=== PATIENT | male | born 1985 | race Caucasian/White ===

== ENCOUNTER 2017-07-08 20:35 | Emergency (ER) | payer OTHER ==
[2017-07-08] MEDS ORDERED: Cyclobenzaprine 10 MG Tab PO ONE (21:00)
[2017-07-08] MEDS ORDERED: Ketorolac 60 MG/2 ML SDV IM ONE (21:01)
--- NOTE | 2017-07-08 21:06 | EDM.PDOC ---
ED HPI GENERAL MEDICAL PROBLEM - General Chief Complaint: Back Pain or Injury Stated Complaint: HURT BACK/WORK Time Seen by Provider: 07/08/17 21:03 Source of Information: Reports: Patient History Limitations: Reports: No Limitations - History of Present Illness INITIAL COMMENTS - FREE TEXT/NARRATIVE: pt was loading a stemi pt out this am and he slipped on the ice and his rt leg stretched out and he was hyperextended. He noted tightness in the back but at this raghav he has pain in the rt leg which is coming down from the back. Onset: Today, Other ( The incident with his leg happened earlier today. ) Duration: Hour(s): Location: Reports: Back, Lower Extremity, Right Associated Symptoms: Reports: No Other Symptoms Lower Back Pain Score (Numeric/FACES): 7 - Related Data Allergies Allergy/AdvReac Type Severity Reaction Status Date / Time cefaclor [From Ceclor] Allergy Hives Verified 04/28/14 08:14 Penicillins Allergy Hives Verified 04/28/14 08:14 Home Meds: Home Meds NK [No Known Home Meds] 04/28/14 [History] Past Medical History - Past Surgical History Musculoskeletal Surgical History: Reports: Other (See Below) Other Musculoskeletal Surgeries/Procedures:: achilles tendon repair Social & Family History - Tobacco Use Smoking Status *Q: Never Smoker Second Hand Smoke Exposure: No - Caffeine Use Caffeine Use: Reports: Coffee, Soda - Alcohol Use Days Per Week of Alcohol Use: 0 - Recreational Drug Use Recreational Drug Use: No ED ROS GENERAL - Review of Systems Review Of Systems: See Below Constitutional: Reports: No Symptoms HEENT: Reports: No Symptoms Respiratory: Reports: No Symptoms Cardiovascular: Reports: No Symptoms Endocrine: Reports: No Symptoms GI/Abdominal: Reports: No Symptoms : Reports: No Symptoms Musculoskeletal: Reports: Other (pt has pain in the low back and this is radiating down the rt leg. ) ED EXAM,LOWER BACK PAIN/INJURY - Physical Exam Exam: See Below Text/Narrative:: pt arrived with pain over the lower lumbar spine and pain radiating down the back of the rt leg. Exam Limited By: No Limitations General Appearance: Alert, Anxious, Moderate Distress Ears: Normal TMs Nose: Normal Inspection Throat/Mouth: Normal Inspection Head: Atraumatic Neck: Normal Inspection Respiratory/Chest: No Respiratory Distress Cardiovascular: Regular Rate, Rhythm GI/Abdominal: Soft, Non-Tender Back Exam: Other (pt is tender to palpate over the lower lumbar spine. He has a mildly positive straight leg raising sign. ) Extremities: Normal Inspection, Other (pt has normal color and pulses are normal. ) Neurological: Alert Course - Vital Signs Last Recorded V/S: Last Vital Signs Temp 37.1 C 07/08/17 20:48 Pulse 97 07/08/17 20:48 Resp 16 07/08/17 20:48 BP 155/99 H 07/08/17 20:48 Pulse Ox 95 07/08/17 20:48 - Orders/Labs/Meds Orders: Active Orders 24 hr Category Date Time Status Lumbar Spine 2 or 3V [CR] Stat Exams 07/08/17 21:01 Taken Meds: Medications Discontinued Medications Generic Name Dose Route Start Last Admin Trade Name Freq PRN Reason Stop Dose Admin Cyclobenzaprine HCl 10 mg 07/08/17 21:00 07/08/17 21:11 Flexeril PO 07/08/17 21:01 10 mg ONETIME ONE Administration Ketorolac Tromethamine 60 mg 07/08/17 21:01 07/08/17 21:12 Toradol IM 07/08/17 21:02 60 mg ONETIME ONE Administration - Re-Assessments/Exams Free Text/Narrative Re-Assessment/Exam: 07/08/17 21:55 pt had good alignment and good interspaces on the xray. He was given torodol 60mg im and flexeril 10 mg . Departure - Departure Time of Disposition: 21:58 Disposition: Home, Self-Care 01 Condition: Fair Clinical Impression: Lumbar back pain with radiculopathy affecting right lower extremity - Discharge Information Instructions: Back Pain, Adult Referrals: Parvez Pacheco PA-C [Primary Care Provider] - Forms: ED Department Discharge Care Plan Goals: cool pack to the rt lower back, no work for the next 2 days, rest, flexeril 10mg tid for muscle relaxation , motrin 600mg qid, norco 5/325 q6h prn for pain. After 48 hours use moist warm packs to the area. - My Orders Last 24 Hours: My Active Orders 07/08/17 21:01 Lumbar Spine 2 or 3V [CR] Stat - Assessment/Plan Last 24 Hours: My Active Orders 07/08/17 21:01 Lumbar Spine 2 or 3V [CR] Stat
--- NOTE | 2017-07-10 08:30 | CR ---
Lumbar Spine 2 or 3V INDICATION: severe lumbar pain with radicular pain in rt leg FINDINGS: 5 lumbar type vertebral bodies. Mild degenerative disc space narrowing at L5-S1. Exam other solano negative.
== END 2017-07-08 22:10 | disposition home or self-care (01) ==
LOC: JP.ED 20:35
DX: M54.16 Radiculopathy, lumbar region (principal); Z88.0 Allergy status to penicillin; Z88.1 Allergy status to other antibiotic agents
CPT/HCPCS: 72100; 96372; 99284; A9270; J1885

== ENCOUNTER 2017-12-13 18:26 | Emergency (ER) | payer OTHER ==
[2017-12-13] MEDS ORDERED: Albuterol/Ipratropium 3.0-0.5 MG/3 ML Neb Soln NEB ONE (20:49)
[2017-12-13] MEDS ORDERED: Codeine/guaiFENesin 100mg-10 MG/5 ML Syrup 10 ML Cup PO ONE ×2 (20:49→22:10)
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
--- NOTE | 2017-12-14 11:44 | CR ---
Chest 2V HISTORY: No Clinical Info FINDINGS: Heart size within normal limits. Pulmonary vasculature within normal limits. No evidence fo r focal consolidation or cardiopulmonary process. IMPRESSION: No radiographic evidence for acute cardiopulmonary process.
== END 2017-12-13 22:38 | disposition home or self-care (01) ==
LOC: JP.ED 18:26
DX: J40 Bronchitis, not specified as acute or chronic (principal); Z88.0 Allergy status to penicillin
CPT/HCPCS: 36415; 71046; 80053; 83735; 84484; 85025; 87804; 93005; 94640; 99284; A9270; J7620

== ENCOUNTER 2019-02-03 16:54 | Emergency (ER) | payer SELFPAY ==
--- NOTE | 2019-02-03 17:26 | EDM.PDOC ---
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 felt a stinging sensation pop in his top of the shoulder side of his neck numbness and tingling shooting down his fingers this has improved his range of motion is within normal limits however he still having pain in the upper shoulder area Right Shoulder Pain Score (Numeric/FACES): 2 - Related Data Allergies Allergy/AdvReac Type Severity Reaction Status Date / Time cefaclor [From Ceclor] Allergy Hives Verified 12/13/17 19:58 Penicillins Allergy Hives Verified 12/13/17 19:58 Home Meds: Home Meds NK [No Known Home Meds] 04/28/14 [History] Past Medical History HEENT History: Reports: Impaired Vision Musculoskeletal History: Reports: Fracture, Other (See Below) Other Musculoskeletal History: Plica Neurological History: Reports: Concussion Psychiatric History: Reports: Depression - Past Surgical History HEENT Surgical History: Reports: Adenoidectomy, Tonsillectomy Musculoskeletal Surgical History: Reports: Other (See Below) Other Musculoskeletal Surgeries/Procedures:: achilles tendon repair. 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 in the [facility] with his and children.) Review of Systems - Review of Systems Review Of Systems: See Below Musculoskeletal: Reports: Shoulder Pain Neurological: Reports: Tingling ED EXAM, GENERAL - Physical Exam Exam: See Below Free Text/Narrative:: Examination the right shoulder I don't appreciate any erythema and there is no edema I can pinpoint any point tenderness he has full range of motion shoulder radial pulses +2 Exam Limited By: No Limitations General Appearance: Alert, WD/WN, No Apparent Distress Course - Vital Signs Last Recorded V/S: Last Vital Signs Temp 98 F 02/03/19 17:08 Pulse 94 02/03/19 17:08 Resp 16 02/03/19 17:08 BP 155/91 H 02/03/19 17:08 Pulse Ox 98 02/03/19 17:08 - Orders/Labs/Meds Orders: Active Orders 24 hr Category Date Time Status Shoulder Comp Rt [CR] Stat Exams 02/03/19 17:25 Taken Departure - Departure Time of Disposition: 17:49 Disposition: Home, Self-Care 01 Condition: Good Clinical Impression: Brachial plexus injury, right Qualifiers: Encounter type: initial encounter Qualified Code(s): S14.3XXA - Injury of brachial plexus, initial encounter - Discharge Information Referrals: PCP,None [Primary Care Provider] - Forms: ED Department Discharge Additional Instructions: Use Tylenol or Motrin as needed for pain control, follow-up primary care 3-4 days if no improvement, call return to the emergency department worsening of symptoms - My Orders Last 24 Hours: My Active Orders 02/03/19 17:25 Shoulder Comp Rt [CR] Stat - Assessment/Plan Last 24 Hours: My Active Orders 02/03/19 17:25 Shoulder Comp Rt [CR] Stat Plan: Assessment Acuity = acute Site and laterality = brachial plexus injury right shoulder Etiology = secondary trauma Manifestations = numbness tingling now improving Location of injury = work Lab values = shoulder x-ray I did review films myself I cannot appreciate any acute process, the official read from radiology is pending Plan He had good improvement in the emergency department plan is to discharge to home follow-up primary care as needed, Motrin as needed This note was dictated using [employer] voice recognition software please call with any questions on syntax or grammar.
--- NOTE | 2019-02-03 18:35 | CRLCR ---
Indication: Pain Technique: Two views right shoulder Comparison: None Findings: Bones: Alignment is normal. No fractures or bone lesions. Joint spaces: Unremarkable. Soft tissues: Unremarkable. Impression: Negative. Dictated by Cass Oshea MD @ Feb 03 2019 6:33PM Signed by Dr. Cass Oshea @ Feb 03 2019 6:34PM
== END 2019-02-03 17:58 | disposition home or self-care (01) ==
LOC: JP.ED 16:54
DX: S14.3XXA Injury of brachial plexus, initial encounter (principal); F17.210 Nicotine dependence, cigarettes, uncomplicated; Z88.1 Allergy status to other antibiotic agents; Z88.0 Allergy status to penicillin; X50.0XXA Overexertion from strenuous movement or load, initial encounter
CPT/HCPCS: 73030-RT; 99283-25

== ENCOUNTER 2022-02-05 13:14 | Emergency (ER) | payer BC | END 2022-02-05 15:04 | disposition home or self-care (01) | LOC: JP.ED 13:14 | DX: S40.022A Contusion of left upper arm, initial encounter (principal); Z88.0 Allergy status to penicillin; Z88.1 Allergy status to other antibiotic agents; W20.8XXA Other cause of strike by thrown, projected or falling object, initial encounter | CPT/HCPCS: 73060-26-LT; 73060-LT; 99282; 99283 ==

== ENCOUNTER 2023-01-23 15:45 | Emergency (ER) | payer OTHER, BC | END 2023-01-23 16:54 | disposition home or self-care (01) | LOC: JP.ED 15:45 | DX: S63.616A Unspecified sprain of right little finger, initial encounter (principal); Z79.899 Other long term (current) drug therapy; Z88.0 Allergy status to penicillin; Z88.1 Allergy status to other antibiotic agents; X58.XXXA Exposure to other specified factors, initial encounter; Y92.59 Other trade areas as the place of occurrence of the external cause; Y99.0 Civilian activity done for income or pay | CPT/HCPCS: 73140-26-F9; 73140-F9; 99283 ==

== ENCOUNTER 2023-06-30 08:55 | Emergency (ER) | payer OTHER, BC | END 2023-06-30 10:34 | disposition home or self-care (01) | LOC: JP.ED 08:55 | DX: S00.83XA Contusion of other part of head, initial encounter (principal); Z88.0 Allergy status to penicillin; Z88.1 Allergy status to other antibiotic agents; Z79.899 Other long term (current) drug therapy; W22.8XXA Striking against or struck by other objects, initial encounter | CPT/HCPCS: 70450; 70450-26; 70486; 70486-26; 99283 ==

== ENCOUNTER 2024-10-31 10:41 | Emergency (ER) | payer BC, OTHER ==
[2024-10-31] MEDS: Ketorolac 30 MG/ML SDV IM ONE (12:03)
== END 2024-10-31 13:02 | disposition home or self-care (01) ==
LOC: JP.ED 10:41
DX: M62.830 Muscle spasm of back (principal); Z88.0 Allergy status to penicillin; Z88.1 Allergy status to other antibiotic agents; Z79.899 Other long term (current) drug therapy; Z79.84 Long term (current) use of oral hypoglycemic drugs
CPT/HCPCS: 96372; 99283; J1885

== ENCOUNTER 2025-08-01 16:54 | Emergency (ER) | payer OTHER | END 2025-08-01 20:33 | disposition home or self-care (01) | LOC: JP.ED 16:54 | DX: S89.91XA Unspecified injury of right lower leg, initial encounter (principal); Z88.0 Allergy status to penicillin; Z88.8 Allergy status to other drugs, medicaments and biological substances; Z79.899 Other long term (current) drug therapy; X58.XXXA Exposure to other specified factors, initial encounter | CPT/HCPCS: 73562; 99283; A9270 ==